=== PATIENT | female | born 1970 | race Caucasian/White ===

== ENCOUNTER 2018-09-10 16:43 | Emergency (ER) | payer MEDICAID ==
[~2018-09-10] VITALS: Ht 139.7 cm; Wt 62.2 kg
[~2018-09-10 16:43] MED LIST: ACET500C5 PO; CIPR500T4 PO; IBUP800T48 PO
[2018-09-10 16:44] VITALS: Ht 139.7 cm; Wt 62.2 kg
[2018-09-10] MEDS ORDERED: DIPHTH/TET/ACEL PERTUSS (ADULT) 0.5 ML VIAL IM* ONE (19:00)
--- NOTE | 2018-09-10 19:04 | ERD ---
ER Documentation Chief Complaint Chief Complaint LT FOREARM PAIN AND SWELLING WITH PUNCTURE WOUND S/P DOG BITE HPI 48-year-old female with no past medical surgical history who presents status post dog bite. Patient states she was at the home of her employer when she was bitten by a [place] husky mix on the left forearm just below the elbow joint. She denies any other injuries. Wound was cleaned with water and alcohol. Circulator of dog at bedside reporting that the dog had all his appropriate shots. Reports dog has all teeth in place with non reported missing. patient believes she had a tetanus shot but is unsure when. She otherwise without complaint. ROS All systems reviewed and are negative except as per history of present illness. Medications Home Meds Active Scripts Ibuprofen* (Motrin*) 600 Mg Tab, 600 MG PO Q6, #30 TAB Prov:MALIHA NAVARRETE PA-C 09/10/18 Amoxicillin/Potassium Clav (Amox-Clav 875-125 mg Tablet) 875-125 mg Tab, 1 TAB PO BID for 7 Days, #14 TAB Prov:MALIHA NAVARRETE PA-C 09/10/18 Ibuprofen* (Motrin*) 800 Mg Tab, 800 MG PO Q6, #30 TAB Prov:JULES WALLS PA-C 03/13/15 Acetaminophen* (Tylophen*) 500 Mg Capsule, 1 CAP PO Q4 PRN for PAIN AND OR ELEVATED TEMP, #30 CAP Prov:JULES WALLS PA-C 03/13/15 Ciprofloxacin Hcl* (Ciprofloxacin Hcl*) 500 Mg Tablet, 500 MG PO BID for 14 Days, TAB Prov:JULES WALLS PA-C 03/13/15 Allergies Allergies: Coded Allergies: No Known Allergy (Unverified , 09/10/18) PMhx/Soc History of Surgery: Yes (pancreas sx, x2) Anesthesia Reaction: No Hx Alcohol Use: No Hx Substance Use: No Hx Tobacco Use: No FmHx Family History: No diabetes, No coronary disease, No other Physical Exam Vitals Vital Signs Date Temp Pulse Resp B/P (MAP) Pulse Ox O2 O2 Flow FiO2 Time Delivery Rate 09/10/18 98.9 110 18 178/83 98 16:44 (114) Physical Exam I have reviewed the triage vital signs. Const: Well nourished, well developed, appears stated age Eyes: PERRL, no conjunctival injection HENT: NCAT, Neck supple without meningismus CV: RRR, Warm, well-perfused extremities RESP: CTAB, Unlabored respiratory effort GI: soft, non-tender, non-distended, no masses MSK: No gross deformities appreciated Skin: Warm, dry. two small puncture wounds to dorsum of forearm just below elbow, no joint involvement, non bleeding. Neuro: grossly non focal Psych: Appropriate mood and affect. Results 24 hrs Current Medications Medications Dose Sig/Scottie Start Time Status Last (Trade) Ordered Route PRN Stop Time Admin Dose Reason Admin Diphtheria/ 0.5 ml ONCE ONCE 09/10/18 DC Tetanus/Acell IM* 19:00 Pertussis 09/10/18 19:02 (Adacel) Procedures/MDM 48 yo F Who presents status post dog bite to the left forearm. Patient is at low risk for rabies as the exposure was by a domestic animal that most likely is vaccinated. Nonetheless, I recommend confirming vaccination status and quarantine for one week of the involved animal. Plan: Tdap, Augmentin 7-day course, MD follow-up DISPOSITION PLAN: We discussed follow up with the patient's primary care doctor within 24 to 48 hours. Patient counseled regarding my diagnostic impression and care plan. Prior to discharge all questions answered. Pt agrees with treatment plan and understands strict return precautions. Precautionary instructions provided including instructions to return to the ER if not improving or for any worsening or changing symptoms or concerns. Departure Diagnosis: Ruled Out: Pyelonephritis Condition: Stable MALIHA NAVARRETE PA-C Sep 10, 2018 19:04
[2018-09-10] MEDS ORDERED: AMOX1TAB10 PO (19:07)
[2018-09-10] MEDS ORDERED: IBUP-1542 PO (19:07)
[2018-09-10 19:20] VITALS: BP 158/62; PULSE 96; RESP 18
== END 2018-09-10 19:20 | disposition home or self-care (01) ==
LOC: FTE 16:43
DX: S51.852A Open bite of left forearm, initial encounter (principal); W54.0XXA Bitten by dog, initial encounter; Y92.009 Unspecified place in unspecified non-institutional (private) residence as the place of occurrence of the external cause; Z23 Encounter for immunization
CPT/HCPCS: 90471; 90715; Z7502

== ENCOUNTER 2018-12-01 20:33 | Emergency (ER) | payer MEDICAID, OTHER ==
[~2018-12-01] VITALS: Ht 142.2 cm; Wt 62.4 kg
[~2018-12-01 20:33] MED LIST changes: +AMOX1TAB10 PO; +IBUP-1542 PO
[2018-12-01 20:38] VITALS: Ht 142.2 cm; Wt 62.4 kg
--- NOTE | 2018-12-01 21:16 | ERD ---
ER Documentation Chief Complaint Chief Complaint DYSURIA X'S 2 DAYS HPI Patient is a 48 years old female resenting to the clinic for dysuria, urinary urgency, bladder fullness, and pain X 2 days. She reports pain during urination is unbearable as of now. Patient admits to taking various [id number] analgesics without resolution. Patient admits to going to an urgent care but did not have any insurance and could not afford treatment. Patient denies fever, chills, night sweats, abdominal pain, back pain, vaginal discharge/pruritus, vaginal bleeding. ROS All systems reviewed and are negative except as per history of present illness. Medications Home Meds Active Scripts Phenazopyridine Hcl* (Pyridium*) 200 Mg Tab, 200 MG PO TID PRN for URINARY PAIN, #6 TAB Prov:DANIEL XAVIER PA-C 12/01/18 Ciprofloxacin Hcl* (Ciprofloxacin Hcl*) 250 Mg Tablet, 250 MG PO BID for 5 Days, #10 TAB Prov:DANIEL XAVIER PA-C 12/01/18 Ibuprofen* (Motrin*) 600 Mg Tab, 600 MG PO Q6, #30 TAB Prov:MALIHA NAVARRETE PA-C 09/10/18 Amoxicillin/Potassium Clav (Amox-Clav 875-125 mg Tablet) 875-125 mg Tab, 1 TAB PO BID for 7 Days, #14 TAB Prov:MALIHA NAVARRETE PA-C 09/10/18 Ibuprofen* (Motrin*) 800 Mg Tab, 800 MG PO Q6, #30 TAB Prov:JULES WALLS PA-C 03/13/15 Acetaminophen* (Tylophen*) 500 Mg Capsule, 1 CAP PO Q4 PRN for PAIN AND OR ELEVATED TEMP, #30 CAP Prov:JULES WALLS PA-C 03/13/15 Ciprofloxacin Hcl* (Ciprofloxacin Hcl*) 500 Mg Tablet, 500 MG PO BID for 14 Days, TAB Prov:JULES WALLS PA-C 03/13/15 Allergies Allergies: Coded Allergies: No Known Allergy (Unverified , 09/10/18) PMhx/Soc Medical and Surgical Hx: pt denies Medical Hx History of Surgery: Yes (pancreas sx, x2) Anesthesia Reaction: No Hx Neurological Disorder: No Hx Respiratory Disorders: No Hx Cardiac Disorders: No Hx Psychiatric Problems: No Hx Miscellaneous Medical Probl: No Hx Alcohol Use: No Hx Substance Use: No Hx Tobacco Use: No FmHx Family History: No diabetes, No coronary disease, No other Physical Exam Vitals Vital Signs Date Temp Pulse Resp B/P (MAP) Pulse Ox O2 O2 Flow FiO2 Time Delivery Rate 12/01/18 97.5 64 18 163/74 96 20:38 (103) Physical Exam Const: In some mild distress crying reporting of dysuria. Head: Atraumatic Eyes: Normal Conjunctiva Resp: Clear to auscultation bilaterally Cardio: Regular rate and rhythm, no murmurs Abd: Soft, non tender, non distended. Normal bowel sounds. Mild suprapubic t enderness. Negative Sandoval sign, Rovsing sign, McBurney's point tenderness, guarding, rebound tenderness, Alfredo sign, [place] sign. Skin: No petechiae or rashes Back: No midline or flank tenderness. Negative CVAT. Ext: No cyanosis, or edema Neur: Awake and alert Psych: Normal Mood and Affect Results 24 hrs Laboratory Tests Test 12/01/18 21:13 12/01/18 21:15 POC Beta HCG, Qualitative NEGATIVE Urine Color STRAW Urine Clarity CLEAR Urine pH 7.0 Bedside Urine pH (LAB) 7.0 Urine Specific [place] 1.001 Bedside Urine Protein (LAB) Negative Bedside Urine Glucose (UA) Negative Urine Ketones NEGATIVE mg/dL Bedside Urine Ketones (LAB) Negative Bedside Urine Blood Trace-lysed Urine Nitrite NEGATIVE mg/dL Bedside Urine Nitrite (LAB) Negative Urine Bilirubin NEGATIVE mg/dL Urine Urobilinogen NEGATIVE mg/dL Urine Leukocyte Esterase NEGATIVE Emilia/ul Bedside Urine Leukocyte Esterase (L Negative Urine Microscopic RBC 0 /HPF Urine Microscopic WBC 0 /HPF Urine Hemoglobin 1+ mg/dL Urine Glucose NEGATIVE mg/dL Urine Total Protein NEGATIVE mg/dl Current Medications Medications Dose Sig/Scottie Start Time Status Last (Trade) Ordered Route PRN Stop Time Admin Dose Reason Admin 200 mg ONCE ONCE 12/01/18 DC 12/01/18 Phenazopyridi PO 21:30 12/01/18 21:17 ne HCl 21:31 (Pyridium) Procedures/MDM Patient was seen and evaluated for dysuria and urinary symptoms. Urinalysis was unremarkable. Patient was given Pyridium 200 mg p.o. in ED with significant improvement of symptoms. Patient stable and ready for discharge. Follow with PCP. Patient will be empirically treated for UTI with Cipro 250 mg p.o. twice daily X 5 days and Pyridium due to clinical presentation. Departure Diagnosis: Primary Impression: Dysuria Condition: Stable Patient Instructions: Dysuria Referrals: [facility] Additional Instructions: Paciente aconseja volver a Departamento de urgencias inmediatamente para sntomas nuevos o que empeoran . Paciente aconseja posteriores con el PCP en 2-3 gutierrez . Paciente verbaliza la comprehensin y est de acuerdo con el tratamiento y el curso de accin. Si el paciente no tiene ninguna de atencin primaria pueden seguir con [facility] [id number] [place] [address] [facility] + [address] [id number] DANIEL XAVIER PA-C Dec 01, 2018 21:16
[2018-12-01] MEDS ORDERED: PHENAZOPYRIDINE 100 MG TAB PO ONE (21:30)
[2018-12-01] MEDS ORDERED: CIPR-193 PO (21:41)
[2018-12-01] MEDS ORDERED: PHEN-538 PO (21:41)
[2018-12-01 21:52] VITALS: BP 143/76; PULSE 86; RESP 18
== END 2018-12-01 21:53 | disposition home or self-care (01) ==
LOC: FTE 20:33
DX: R30.0 Dysuria (principal)
CPT/HCPCS: 81001; 81003; 81025; 99283